=== PATIENT | female | born 1970 | race Caucasian/White ===

== ENCOUNTER 2022-10-18 15:58 | Emergency (ER) | payer OTHER, MEDICAID ==
[2022-10-18] MEDS ORDERED: Morphine 2 MG/ML SYRINGE IVPUSH ONE (16:18)
[2022-10-18] MEDS ORDERED: Ondansetron 4 MG/2 ML SDV IVPUSH ONE (16:19)
[2022-10-18] MEDS ORDERED: Morphine 2 MG/ML SYRINGE ONE (16:19)
[2022-10-18] MEDS ORDERED: Ondansetron 4 MG/2 ML SDV ONE (16:19)
[2022-10-18] MEDS: Sodium Chloride 0.9% 10 ML Syringe FLUSH PRN ×2 (16:25→16:30)
[2022-10-18] MEDS ORDERED: Sodium Chloride 0.9% 1,000 ML IV ONE (16:55)
[2022-10-18 16:56] LABS: BASOPHILS ABSOLUTE AUTO 0.01 K/uL (0.00-0.20); BASOPHILS PERCENT AUTO 0.1 % (0.0-2.0); EOSINOPHILS ABSOLUTE AUTO 0.04 K/uL (0.00-0.50); EOSINOPHILS PERCENT AUTO 0.6 % (0.0-5.0); HEMATOCRIT 39.5 % (34.0-46.0); HEMOGLOBIN 13.2 g/dL (11.7-15.5); LYMPHOCYTES ABSOLUTE AUTO 1.45 K/uL (0.50-3.50); LYMPHOCYTES PERCENT AUTO 20.8 % (10.0-50.0); MEAN CORPUSCULAR HEMOGLOBIN 28.7 pg (28.2-33.3); MEAN CORPUSCULAR HGB CONC 33.4 g/dL (31.7-36.0); MEAN CORPUSCULAR VOLUME 85.9 fL (84.0-98.0); MONOCYTES ABSOLUTE AUTO 0.49 K/uL (0.00-1.00); NEUTROPHILS ABSOLUTE AUTO 4.97 K/uL (1.40-7.00); NEUTROPHILS PERCENT AUTO 71.5 % (45.0-80.0); PLATELET COUNT,PLT 138 K/uL (150-350); RED CELL DISTRIBUTION WIDTH 14.1 % (11.2-14.1)
[2022-10-18 16:57] LABS: APPEARANCE,URINE TURBID; BILIRUBIN,URINE NEGATIVE (NEGATIVE); COLOR,URINE YELLOW; GLUCOSE,URINE NEGATIVE (NEGATIVE); KETONES,URINE NEGATIVE (NEGATIVE); LEUKOCYTE ESTERASE,URINE NEGATIVE (NEGATIVE); NITRITE,URINE POSITIVE (NEGATIVE); PH,URINE 5.5 (5.0-9.0); PROTEIN,URINE NEGATIVE (NEGATIVE)
[2022-10-18] MEDS ORDERED: Iopamidol 612 MG/ML 100 ML Bottle IVPUSH ONE (16:58)
[2022-10-18] MEDS ORDERED: Iopamidol 612 MG/ML 100 ML Bottle ONE (17:00)
[2022-10-18 17:09] LABS: ALANINE AMINOTRANSFERASE,ALT 42 U/L (12-78); ALBUMIN 3.6 g/dL (3.4-5.0); ALKALINE PHOSPHATASE 159 IU/L (46-116); ANION GAP 8.9 meq/L (7-15); ASPARTATE AMNIOTRANSFERASE,AST 79 U/L (15-37); BILIRUBIN TOTAL 0.7 mg/dL (0.2-1.0); BLOOD UREA NITROGEN,BUN 10 mg/dL (7-18); CALCIUM 8.8 mg/dL (8.5-10.1); CARBON DIOXIDE,CO2 29.1 mmol/L (21.0-32.0); CHLORIDE,CL 105 mmol/L (98-107); CREATININE 0.78 mg/dL (0.51-1.17); GLUCOSE RANDOM 103 mg/dL (70-99); MAGNESIUM 2.1 mg/dL (1.8-2.4); POTASSIUM,K 3.6 mmol/L (3.5-5.1); PROTEIN TOTAL,TP 6.8 g/dL (6.4-8.2); SODIUM,NA 143 mmol/L (136-145)
[2022-10-18 17:11] LABS: ESTIMATED GFR 92 mL/min (>=60)
[2022-10-18 17:13] LABS: OCCULT BLOOD,URINE TRACE-LYSED (NEGATIVE)
[2022-10-18 17:14] LABS: BACTERIA,URINE MANY /HPF (NONE TO FEW); EPITHELIAL CELLS,URINE NOT SEEN /LPF; RBC,URINE 0-5 /HPF; WBC,URINE 0-5 /HPF
[2022-10-18] MEDS: Lidocaine 1% 5 ML VIAL INJECT ONE ×2 (18:03→20:33)
[2022-10-18 18:49] LABS: AMPHETAMINES SCREEN, URINE POSITIVE (NEGATIVE); BARBITURATE SCREEN,URINE NEGATIVE (NEGATIVE); BENZODIAZEPINES SCREEN,URINE POSITIVE (NEGATIVE); COCAINE METABOLITES,URINE NEGATIVE (NEGATIVE); EDDP,URINE SCREEN NEGATIVE (NEGATIVE); METHAMPHETAMINES SCREEN, URINE POSITIVE (NEGATIVE); TCA SCREEN,URINE NEGATIVE (NEGATIVE); THC SCREEN,URINE 50 NG/ML POSITIVE (NEGATIVE)
[2022-10-18 18:56] LABS: BUPRENORPHINE SCREEN,URINE NEGATIVE (NEGATIVE); OXYCODONE SCREEN,URINE POSITIVE (NEGATIVE)
[2022-10-18] MEDS ORDERED: Cephalexin 500 MG Cap PO ONE (19:10)
== END 2022-10-18 19:25 | disposition home or self-care (01) ==
LOC: LL.ED 15:58
DX: S01.81XA Laceration without foreign body of other part of head, initial encounter (principal); S09.90XA Unspecified injury of head, initial encounter; S40.211A Abrasion of right shoulder, initial encounter; S60.511A Abrasion of right hand, initial encounter; S50.811A Abrasion of right forearm, initial encounter; F17.210 Nicotine dependence, cigarettes, uncomplicated; Z88.8 Allergy status to other drugs, medicaments and biological substances; V29.99XA Rider (driver) (passenger) of other motorcycle injured in unspecified traffic accident, initial encounter; Y92.410 Unspecified street and highway as the place of occurrence of the external cause
CPT/HCPCS: 12011; 36415; 70450; 70486; 71260; 72125; 74177; 80053; 80305-QW; 80307; 81001; 81025; 83735; 85025; 87086; 87088; 87186; 93005; 93010; 96361; 96374; 96375; 99284; 99284-25; A9270-GY; J2270; J2405; J3490; J7030; Q9967